=== PATIENT | female | born 1965 | race Caucasian/White ===

== ENCOUNTER 2024-11-10 13:11 | Emergency (ER) | payer BC ==
[2024-11-10] MEDS: MORPHINE 2 MG/ML 1 ML VIAL IV PRN ×2 (14:23→20:05)
[2024-11-10] MEDS ORDERED: ISOVUE-370 76% 100 ML VIAL As Ordered ONE (14:28)
[2024-11-10 14:51] LABS: BASO # 0.0 10^3/uL (0.0-0.2); BASO % 0.4 % (0.0-1.0); EOS # 0.0 10^3/uL (0.0-0.5); EOS % 0.0 % (0.0-3.0); LYMPH # 0.6 10^3/uL (1.5-5.0); LYMPH % 7.5 % (24.0-44.0); MONO # 0.4 10^3/uL (0.0-0.8); MONO % 5.0 % (2.0-8.0); NEUTROPHILS # 7.1 10^3/uL (1.5-8.5); NEUTROPHILS % 86.7 % (36.0-66.0); PLATELET COUNT, AUTOMATED 118 10^3/uL (150-450)
[2024-11-10 15:02] LABS: INR 1.02
[2024-11-10 15:09] LABS: ALT/SGPT 54 U/L (7.0-40); AST/SGOT 48 U/L (<34); CALCIUM LEVEL 8.7 MG/DL (8.3-10.6); CARBON DIOXIDE LEVEL 26 MMOL/L (20-31); CHLORIDE LEVEL 104 MMOL/L (98-107); CREATININE FOR GFR 0.70 MG/DL (0.55-1.30); GLOMERULAR FILTRATION RATE > 90.0 (>45); POTASSIUM SERUM 4.2 MMOL/L (3.5-5.1); SODIUM LEVEL 138 MMOL/L (136-145)
[2024-11-10] MEDS: NS (Normal Saline) 0.9% 1,000 ML IV ONE (18:40)
[2024-11-10 18:55] LABS: PLATELET COUNT, AUTOMATED 115 10^3/uL (150-450)
[2024-11-10 20:30] VITALS: BP 178/84; TEMP 98.6; O2SAT 97
== END 2024-11-10 20:40 | disposition short-term general hospital (02) ==
LOC: EDBD 13:11 → M ED 13:11
DX: S32.012A Unstable burst fracture of first lumbar vertebra, initial encounter for closed fracture (principal); S30.0XXA Contusion of lower back and pelvis, initial encounter; Y92.019 Unspecified place in single-family (private) house as the place of occurrence of the external cause; Y93.9 Activity, unspecified; Y99.9 Unspecified external cause status; W10.8XXA Fall (on) (from) other stairs and steps, initial encounter; F17.210 Nicotine dependence, cigarettes, uncomplicated; F10.10 Alcohol abuse, uncomplicated
CPT/HCPCS: 70450; 71045; 71275; 72125; 72131; 73502; 73630; 74174; 80047; 80048; 80076; 85025; 85027; 85610; 85730; 93041; 94760; 96361; 96374; 96375; 99285; Q9967